=== PATIENT | female | born 1945 | race Caucasian/White ===

== ENCOUNTER 2020-01-09 17:32 | Inpatient (IN) | payer MEDICARE ==
[~2020-01-09] VITALS: Ht 158.8 cm; Wt 74.6 kg
[2020-01-09 18:49] LABS: BASOPHILS % (AUTO) 0.3 % (0.0-5.0); EOSINOPHILS % (AUTO) 1.2 % (0.0-8.0); HEMATOCRIT 36.6 % (36-48); LYMPHOCYTES % (AUTO) 34.4 % (21.0-51.0); MEAN CORPUSCULAR HEMOGLOBIN 32.5 pg (27.0-33.0); MEAN CORPUSCULAR HGB CONC 33.6 g/dL (32.0-36.0); MEAN CORPUSCULAR VOLUME 96.8 fL (79-99); MONOCYTES % (AUTO) 8.8 % (3.0-13.0); PLATELET COUNT (AUTO) 145 K/uL (130-400); RED BLOOD CELL COUNT(AUTO) 3.78 MIL/uL (4.00-5.50)
[2020-01-09 18:58] LABS: PARTIAL THROMBOPLASTIN TIME 25.5 SEC (26.3-35.5); POTASSIUM 3.1 mmol/L (3.5-5.1)
[2020-01-09 19:04] LABS: ALBUMIN 4.2 g/dL (3.5-5.0); BILIRUBIN,TOTAL 0.4 mg/dL (0.2-1.0); TOTAL PROTEIN, SERUM 7.8 g/dL (6.0-8.3)
[2020-01-09 19:27] LABS: INR 0.92 (0.85-1.15)
[2020-01-09] MEDS ORDERED: GLUCAGON 1MG KIT 1 MG ML IM PRN (22:45)
[2020-01-09] MEDS ORDERED: DEXTROSE 50%-WATER 50 ML DISP.SYRIN IV PRN (22:45)
[2020-01-09] MEDS ORDERED: ACETAMINOPHEN 325 MG TAB PO PRN (22:45)
[2020-01-09] MEDS ORDERED: MORPHINE SULFATE 2 MG/ML 1ML SYG IVP PRN (22:45)
[2020-01-09] MEDS ORDERED: ONDANSETRON 4 MG TABLET PO PRN (22:45)
[2020-01-09] MEDS: ENOXAPARIN SODIUM 40 MG/0.4 ML SYRINGE SQ SCH (23:00)
[2020-01-10] VITALS (7 sets, daily range): BP systolic 99–128; BP diastolic 48–82
[2020-01-10] MEDS: ASPIRIN 81MG TAB.CHEW PO SCH ×2 (00:18→09:29)
[2020-01-10] MEDS: ATORVASTATIN CALCIUM 40 MG TABLET PO SCH ×2 (00:18→19:53)
[2020-01-10] MEDS: METOPROLOL TARTRATE 25 MG TAB PO SCH ×3 (00:18→19:53)
[2020-01-10] MEDS: HUMALOG PO SS1 SQ SCH ×4 (05:33→20:34)
[2020-01-10 05:56] LABS: CREATINE KINASE, TOTAL 62 U/L (21-232); MYOGLOBIN 48 ng/mL (10-92); TROPONIN I < 0.04 ng/mL (0.00-0.06)
[2020-01-10] MEDS: ENOXAPARIN SODIUM 40 MG/0.4 ML SYRINGE SQ SCH (09:33)
[2020-01-10] MEDS ORDERED: POTASSIUM CHLORIDE 10% ELIXIR 20 MEQ/15 ML UDCUP PO PRN (15:15)
[2020-01-10] MEDS ORDERED: POTASSIUM CHLORIDE 10MEQ/100ML 100 ML IV PRN (15:15)
[2020-01-10] MEDS ORDERED: LIDOCAINE HCL-MPF 1% 2ML VIAL IV PRN (15:15)
[2020-01-10] MEDS ORDERED: MAGNESIUM 2GM PREMIX 50ML 50 ML IV SCH (15:15)
[2020-01-10] MEDS: POTASSIUM CHLORIDE 20 MEQ ERTAB PO PRN ×3 (16:11→19:52)
[2020-01-11 03:57] LABS: HEMATOCRIT 34.1 % (36-48); MEAN CORPUSCULAR HEMOGLOBIN 32.5 pg (27.0-33.0); MEAN CORPUSCULAR HGB CONC 33.1 g/dL (32.0-36.0); RED BLOOD CELL COUNT(AUTO) 3.48 MIL/uL (4.00-5.50); RED CELL DISTRIBUTION WIDTH 12.1 % (11.0-15.5); WHITE BLOOD COUNT (AUTO) 4.9 K/uL (4.8-10.8)
[2020-01-11 04:09] LABS: CREATININE 0.9 mg/dL (0.5-1.5); MAGNESIUM 1.9 mg/dL (1.80-2.40); POTASSIUM 4.5 mmol/L (3.5-5.1)
[2020-01-11 04:12] VITALS: BP 103/57
[2020-01-11] MEDS: HUMALOG PO SS1 SQ SCH ×2 (05:47→11:30)
[2020-01-11 08:00] VITALS: BP 128/71
[2020-01-11] MEDS: METOPROLOL TARTRATE 25 MG TAB PO SCH (08:51)
[2020-01-11] MEDS: ASPIRIN 81MG TAB.CHEW PO SCH (08:51)
[2020-01-11] MEDS: ENOXAPARIN SODIUM 40 MG/0.4 ML SYRINGE SQ SCH (08:52)
[2020-01-11 11:58] VITALS: BP 131/75
== END 2020-01-11 15:30 | disposition home or self-care (01) | DRG 311 ==
LOC: EDH 17:32 → EDHIP 21:53 → 4AH 23:59
PROVIDERS: ADMIT Internal Medicine Infectious Disease; ATTEND Internal Medicine Infectious Disease
DX: I20.9 Angina pectoris, unspecified (principal); E87.6 Hypokalemia; E66.9 Obesity, unspecified; I10 Essential (primary) hypertension; E11.9 Type 2 diabetes mellitus without complications; E78.5 Hyperlipidemia, unspecified; Z20.828 Contact with and (suspected) exposure to other viral communicable diseases; Z68.29 Body mass index [BMI] 29.0-29.9, adult; Z90.49 Acquired absence of other specified parts of digestive tract; Z79.899 Other long term (current) drug therapy; Z79.84 Long term (current) use of oral hypoglycemic drugs
CPT/HCPCS: 36415; 71045; 80048; 80053; 82550; 82948; 83735; 83874; 84484; 85025; 85027; 85610; 85730; 87426; 93005; G0378; J1650; J3475; U0003

== ENCOUNTER 2020-05-01 11:17 | Emergency (ER) | payer MEDICARE ==
[2020-05-01 11:55] LABS: BASOPHILS % (AUTO) 0.8 % (0.0-5.0); EOSINOPHILS % (AUTO) 0.9 % (0.0-8.0); HEMATOCRIT 38.5 % (36-48); LYMPHOCYTES % (AUTO) 21.9 % (21.0-51.0); MEAN CORPUSCULAR HGB CONC 33.8 g/dL (32.0-36.0); MEAN CORPUSCULAR VOLUME 97.7 fL (79-99); MONOCYTES % (AUTO) 5.9 % (3.0-13.0); NEUTROPHILS % (AUTO) 70.2 % (40.0-77.0); PLATELET COUNT (AUTO) 149 K/uL (130-400); RED BLOOD CELL COUNT(AUTO) 3.94 MIL/uL (4.00-5.50); RED CELL DISTRIBUTION WIDTH 12.1 % (11.0-15.5); WHITE BLOOD COUNT (AUTO) 6.5 K/uL (4.8-10.8)
[2020-05-01 11:57] LABS: APPEARANCE,URINE Clear (CLEAR); BILIRUBIN,URINE Negative (NEGATIVE); COLOR,URINE Yellow (YELLOW); GLUCOSE, URINE (UA) Negative (NEGATIVE); KETONES,URINE Negative (NEGATIVE); LEUKOCYTE ESTERASE ,URINE Moderate (NEGATIVE); NITRATE,URINE Negative (NEGATIVE); OCCULT BLOOD,URINE Negative (NEGATIVE); PH,URINE 7.5 (5.0-8.0); PROTEIN,URINE Negative (NEGATIVE); UROBILINOGEN,URINE 0.2 mg/dL (0.2-1.0)
[2020-05-01 12:04] LABS: BACTERIA,URINE None Seen /HPF (None Seen); RBC,URINE None Seen /HPF (0-1)
[2020-05-01 12:09] LABS: CREATININE 0.8 mg/dL (0.5-1.5); POTASSIUM 3.9 mmol/L (3.5-5.1)
[2020-05-01 12:13] LABS: ALBUMIN 4.2 g/dL (3.5-5.0); BILIRUBIN,TOTAL 0.5 mg/dL (0.2-1.0); INR 0.97 (0.85-1.15); PROTHROMBIN TIME 10.6 SEC (9.6-11.6)
[2020-05-01 12:15] LABS: PARTIAL THROMBOPLASTIN TIME 24.7 SEC (26.3-35.5)
[2020-05-01 12:18] LABS: B-TYPE NATRIURETIC PEPTIDE 140 pg/mL (0-100)
[2020-05-01] MEDS ORDERED: CEFTRIAXONE SODIUM 1 GM ONE (12:43)
[2020-05-01] MEDS ORDERED: SODIUM CHLORIDE 0.9% 1000ML 1,000 ML IV ONE (12:45)
== END 2020-05-01 13:17 | disposition home or self-care (01) ==
LOC: EDH 11:17
DX: N39.0 Urinary tract infection, site not specified (principal); R42 Dizziness and giddiness; E11.9 Type 2 diabetes mellitus without complications; I10 Essential (primary) hypertension
CPT/HCPCS: 36415; 70450; 71045; 80053; 81001; 82550; 83880; 84484; 85025; 85610; 85730; 87088; 93005; 96374; 99285; J0696; J7030

== ENCOUNTER → 2021-12-02 | Outpatient (CLI) | payer MEDICARE ==
[~2021-12-02] MED LIST: REGADENOSON 0.4 MG/5 ML PF SYG IVP SCH
== END | disposition home or self-care (01) ==
LOC: RAH 10:57
PROVIDERS: ATTEND Internal Medicine Cardiovascular Disease
DX: R06.02 Shortness of breath (principal)
CPT/HCPCS: 78452; 96374; 93017; J2785; A9500 ×2

== ENCOUNTER → 2022-01-06 | Outpatient (CLI) | payer MEDICARE ==
[~2022-01-06] MED LIST changes: +IOHEXOL 350 MG/ML 100ML INFUS..BTL IV ONE; -REGADENOSON 0.4 MG/5 ML PF SYG IVP SCH
== END | disposition home or self-care (01) ==
LOC: RAH 08:56
PROVIDERS: ATTEND Internal Medicine Cardiovascular Disease
DX: I25.119 Atherosclerotic heart disease of native coronary artery with unspecified angina pectoris (principal)
CPT/HCPCS: 75574; Q9967